=== PATIENT | female | born 1970 | race African-American/Black ===

== ENCOUNTER 2024-05-23 16:13 | Emergency (ER) | payer MEDICARE, MEDICAID ==
[~2024-05-23] VITALS: Ht 165.1 cm; Wt 100.0 kg
[~2024-05-23 16:13] MED LIST: ATOR40TA70 PO; CETI10TA6; CHLO25TA68 PO; DICY-18 PO; GABA-529; HYDR-4009; LISI20TA31 PO; SERT25TA74 PO
[2024-05-23 16:21] VITALS: O2SAT 98
[2024-05-23] MEDS: ZIPRASIDONE MESYLATE 20MG/VIAL IM ONE (17:47)
[2024-05-23] MEDS: DIPHENHYDRAMINE 50MG/ML VIAL IM ONE (17:47)
[2024-05-23 18:44] LABS: CLARITY URINE CLOUDY (CLEAR); COLOR URINE YELLOW (YELLOW); GLUCOSE URINE NEGATIVE (NEGATIVE); KETONES URINE 1+ (NEGATIVE); LEUKOCYTE ESTERASE URINE TRACE (NEGATIVE); NITRITE URINE NEGATIVE (NEGATIVE); OCCULT BLOOD URINE NEGATIVE (NEGATIVE); PH URINE 6.5 (4.5-8.0); PROTEIN URINE TRACE (NEGATIVE); SPECIFIC GRAVITY URINE 1.024 (1.005-1.030)
[2024-05-23 18:55] LABS: *AMPHETAMINES SCREEN URINE NEGATIVE (NEGATIVE); *BARBITURATES SCREEN URINE NEGATIVE (NEGATIVE); *BENZODIAZEPINES SCREEN URINE PRESUMPTIVE POSITIVE (NEGATIVE); *COCAINE SCREEN URINE NEGATIVE (NEGATIVE)
[2024-05-23 18:56] LABS: CANNABINOID URINE SCREEN NEGATIVE (NEGATIVE); ECSTASY MDMA SCREEN URINE NEGATIVE (NEGATIVE); METHADONE URINE SCREEN NEGATIVE (NEGATIVE); OPIATES URINE SCREEN NEGATIVE (NEGATIVE); PHENCYCLIDINE URINE SCREEN NEGATIVE (NEGATIVE)
[2024-05-23 19:25] LABS: BASOPHILS % 0.2 % (0.0-2.0); EOSINOPHILS % 2.4 % (0.0-5.0); HEMATOCRIT. 35.8 % (36.0-48.0); HEMOGLOBIN. 11.9 g/dL (12.0-16.0); LYMPHOCYTES % 24.5 % (20.0-50.0); MEAN CORPUSCULAR HEMOGLOBIN 31.7 pg (28.0-32.0); MEAN CORPUSCULAR HGB CONC 33.1 g/dL (31.0-37.0); MEAN CORPUSCULAR VOLUME 95.6 fL (81.0-99.0); MONOCYTES % 7.6 % (2.0-8.0); NEUTROPHILS % 65.3 % (40.0-76.0); PLATELET 246 x1000/uL (130-400); RED BLOOD CELL COUNT 3.74 mill/uL (4.2-5.4); WHITE BLOOD COUNT 5.9 x1000/uL (4.5-11.0)
[2024-05-23 19:27] LABS: BACTERIA URINE 2+; RBC URINE 0-2 /hpf (0-2); SQUAMOUS EPITHELIAL CELL URINE 1+ /lpf (RARE/1+); WBC URINE 0-2 /hpf (0-2)
[2024-05-23 19:32] LABS: CHLORIDE 108 mEq/L (98-107); POTASSIUM 3.9 mEq/L (3.5-5.1); SODIUM 143 mEq/L (136-145)
[2024-05-23 19:33] LABS: CALCIUM 8.8 mg/dL (8.7-10.4); CARBON DIOXIDE 24 mEq/L (21-32)
[2024-05-23 19:38] LABS: CREATININE 0.6 mg/dL (0.6-1.0); GLUCOSE 102 mg/dL (70-105); UREA NITROGEN BLOOD 12 mg/dL (9-23)
[2024-05-23 19:39] LABS: ETHANOL BLOOD < 10 mg/dL (<10)
[2024-05-23 19:40] LABS: ACETAMINOPHEN < 2 ug/mL (10-30)
[2024-05-24 01:08] LABS: HCG SCREEN NEGATIVE
[2024-05-24] MEDS: LORAZEPAM 2MG/ML INJ IM ONE (02:23)
[2024-05-24] MEDS: HALOPERIDOL LACTATE 5MG/ML VIAL IM ONE ×2 (02:23→09:48)
[2024-05-24] MEDS: DIPHENHYDRAMINE 50MG/ML VIAL IM ONE (09:48)
[2024-05-24 15:02] VITALS: BP 135/88; PULSE 76; RESP 18; TEMP 36.6; O2SAT 100
== END 2024-05-24 15:36 ==
LOC: ER 16:13
DX: R46.2 Strange and inexplicable behavior (principal); I10 Essential (primary) hypertension; Z59.01 Sheltered homelessness; Z79.899 Other long term (current) drug therapy; Z20.822 Contact with and (suspected) exposure to COVID-19
CPT/HCPCS: 80305; 80048; 81003; 80307; 80329; 80320; 84703; 85025; 36415; 96372 ×2; 99285; 87426; J1200 ×2; J3486; J1630; J2060; 96374; G0480